=== PATIENT | male | born 1985 | race Caucasian/White ===

== ENCOUNTER → 2017-04-17 | Day surgery (SDC) | payer OTHER ==
[~2017-04-17] VITALS: Ht 180.3 cm; Wt 80.1 kg
[~2017-04-17] MED LIST: ACETAMINOPHEN 1000 MG/100 ML 100 ML IV SCH; BUPIVACAINE LIPOSOME PF 1.3% 20 ML VIAL INFIL ONE; BUPIVACAINE LIPOSOME PF 1.3% 20 ML VIAL ONE; BUPIVACAINE/EPINEPHRINE 0.25% PF 30 ML VIAL ONE; CHLORHEXIDINE GLUCONATE 2 % 1 PACK (2 CLOTHS) TOPICAL PRN; DEXAMETHASONE SOD PHOS 4 MG/ML VIAL IV ONE; DO NOT ADM ANY ANTICOAGULANT DRUGS PRN; FISHCAP4 PO; LACTATED RINGER'S 1000 ML IV PRN; LIDOCAINE HCL 1% PF 5 ML SYRINGE OTHER ONE; METOPROLOL TARTRATE 25 MG TAB PO PRN; MIDAZOLAM HCL 2 MG/2 ML VIAL ONE; MORPHINE SULFATE 2 MG/ML INJ IV PRN; ONDANSETRON HCL 4 MG/2 ML VIAL IV PUSH ONE; ONDANSETRON HCL 4 MG/2 ML VIAL IV PUSH PRN; ONETAB22 PO; POVIDONE IODINE 5% (ANTISEPSIS KIT) 4 APPLICATIONS EACH NARE PRN; PROPOFOL 200 MG/20 ML AMP IV ONE; ROCURONIUM INJ 50 MG/5 ML VIAL IV ONE; SODIUM CHLORID 0.9% 500 ML IV PRN; SODIUM CHLORIDE 0.9% 20 ML VIAL ONE; STOO100T PO; ceFAZolin 2 GM PREMIX 50 ML IV SCH; oxyCODONE/ACETAMINOPHEN 5 MG/325 MG TAB PO PRN
--- NOTE | 2017-04-17 11:25 | PD.OP ---
cc: Adam Dean MD Operative Report Date of Surgery: Apr 17, 2017 Preoperative Diagnosis: (1) Right inguinal hernia Postoperative Diagnosis: (1) Right inguinal hernia Procedure: Right inguinal hernia repair with mesh Anesthesia: HARJEET Surgeon: Adam Dean Medical Office Scheduler(s): Zunilda LOOMIS Operation and Findings: EBL: 5 cc Operative findings: Direct right inguinal hernia. Otherwise fascia and internal ring were in good condition. A branch of the ilioinguinal nerve was excised due to being directly in the area of mesh placement. Injection with 40cc 1-1 solution of Exparel and injectable saline used for local anesthetic as well as an ilioinguinal nerve block. Procedure in detail: The patient was taken to the operating room and placed in the supine position. Gen. Anesthesia was induced. The lower abdomen and groin was prepped and draped in usual sterile fashion. Appropriate preoperative antibiotics were administered. In the right inguinal area and an inguinal incision was made. Dissection was carried out through subcutaneous tissue with electrocautery. Robinson's fascia was divided with electrocautery and the external oblique was encountered. A marquita along the direction of fibers was created with a scalpel and extended with Metzenbaum scissors taking care not to injure underlying nerves. The external oblique flaps were created. The spermatic cord and hernia sac were from underlying tissues and the pubis and isolated with a Brenda drain. Cremasteric muscle fibers were divided as necessary. There was noted to be a moderate sized hernia sac in the direct space which was easily from spermatic structures. It was reduced into the abdominal cavity and a single 0 Vicryl suture placed to hold it out of the way for mesh placement. At this point the spermatic cord structures were examined and no indirect hernia or spermatic cord lipoma was encountered. A 15 x 15 cm piece of ultra Pro advanced lightweight polypropylene mesh was then cut to size.. This was secured using simple interrupted 0 Ethibond suture to the pubic tubercle and along the inguinal ligament past the entrance of the spermatic cord into the internal ring. Simple interrupted 0 Ethibond sutures were used to fasten the superior aspect of the mesh medially and superiorly along the conjoined tendon and internal oblique fibers taking care to avoid nearby nerves. The ilioinguinal nerve visible running along the internal oblique and conjoined tendon. A branch of the nerve was going to be in direct contact underneath the mesh and this branch was excised. The remainder of the nerve was carefully avoided. The internal ring was re-created by reapproximating the mesh with interrupted suture taking care to avoid strangulation of the cord. The lateral flaps of mesh were tucked under the external oblique fascia. There was appropriate hemostasis in the operative field. The external ring was re-created by closing the external oblique fascia with running 2-0 Vicryl suture. Robinson's was closed with interrupted 3-0 Vicryl sutures. Skin closed with running subcuticular 4-0 Monocryl as well as Dermabond. The patient tolerated procedure well and was taken to postop in stable condition. Adam Dean MD Apr 17, 2017 11:25
[2017-04-17 12:35] VITALS: BP 146/72; PULSE 72; RESP 16; TEMP 97.8; O2SAT 99
== END | disposition home or self-care (01) ==
LOC: HSDC 07:31
PROVIDERS: ATTEND Surgery
DX: K40.90 Unilateral inguinal hernia, without obstruction or gangrene, not specified as recurrent (principal)
CPT/HCPCS: 00830; 49505; C1781; C9290; J0131; J0690; J1100; J2250; J2405; J3010; J7120